=== PATIENT | female | born 1985 | race African-American/Black ===

== ENCOUNTER 2017-11-30 06:54 | Day surgery (SDC) | payer BC, OTHER ==
[2017-11-24 10:25] LABS: HEMATOCRIT 39.5 % (36.0-47.0); HEMOGLOBIN 13.2 g/dL (12.0-15.5); MEAN CORPUSCULAR HEMOGLOBIN 30.8 pg (27.0-33.4); MEAN CORPUSCULAR HGB CONC 33.3 g/dL (32.0-36.0); MEAN CORPUSCULAR VOLUME 92 fl (80-97); PLATELET COUNT 170 10^3/uL (150-450); RED BLOOD COUNT 4.28 10^6/uL (3.72-5.28); RED CELL DISTRIBUTION WIDTH 14.2 % (11.5-14.0); WHITE BLOOD COUNT 7.7 10^3/uL (4.0-10.5)
[2017-11-24 10:49] LABS: ANION GAP 10 (5-19); BLOOD UREA NITROGEN 12 mg/dL (7-20); CALCIUM 9.5 mg/dL (8.4-10.2); CARBON DIOXIDE 30 mmol/L (22-30); CHLORIDE 103 mmol/L (98-107); GLUCOSE 92 mg/dL (75-110); POTASSIUM 4.4 mmol/L (3.6-5.0); SODIUM 142.9 mmol/L (137-145)
[~2017-11-30 06:54] MED LIST: CEFAZOLIN 1 GM/D5W RTU 1 GM/50 ML RTUPB IV PRN; LACTATED RINGERS 1000 ML IV PRN; LIDOCAINE 0.5% INJ-PF (5 MG/ML) 50 ML SDV SUBCUT PRN
[2017-11-30] MEDS ORDERED: BUPIVACAINE HCL 0.25 % INJ/PF (2.5 MG/1 ML) 30 ML VIAL ONE (07:17)
[2017-11-30] MEDS ORDERED: LIDOCAINE 2% INJ-PF (20 MG/ML) 10 ML AMPUL ONE (08:34)
[2017-11-30] MEDS ORDERED: PROPOFOL INJ 200 MG/20 ML VIAL IV ONE (08:35)
[2017-11-30] MEDS ORDERED: MIDAZOLAM 2 MG/2 ML INJ ONE (08:35)
[2017-11-30] MEDS ORDERED: ONDANSETRON HCL INJ/PF 4 MG/2 ML SDV ONE (08:35)
[2017-11-30] MEDS ORDERED: DEXAMETHASONE SOD PHOSPHATE INJ 4 MG/1 ML VIAL ONE (08:35)
[2017-11-30] MEDS ORDERED: ACETAMINOPHEN 1,000 MG/100 ML RTUPB IV ONE (08:35)
[2017-11-30] MEDS ORDERED: FENTANYL CITRATE INJ/PF 100 MCG/2 ML AMPUL ONE (08:35)
[2017-11-30] MEDS ORDERED: MORPHINE SULFATE 10 MG/ML INJ IV PRN (09:14)
[2017-11-30] MEDS ORDERED: PROMETHAZINE HCL INJ 25 MG/1 ML VIAL IV PRN ×2 (09:14)
[2017-11-30] MEDS ORDERED: FENTANYL CITRATE INJ/PF 100 MCG/2 ML AMPUL IV PRN ×3 (09:14)
[2017-11-30] MEDS ORDERED: DIPHENHYDRAMINE HCL 50 MG/ML VIAL IV PRN (09:14)
[2017-11-30] MEDS ORDERED: ONDANSETRON HCL INJ/PF 4 MG/2 ML SDV IV PRN ×2 (09:14→10:03)
[2017-11-30] MEDS ORDERED: MEPERIDINE HCL/PF INJ 25 MG/1 ML DISP.SYRIN IV PRN (09:14)
[2017-11-30] MEDS ORDERED: OXYCODONE-ACETAMINOPHEN 5-325 MG TABLET PO PRN ×3 (09:14→10:03)
--- NOTE | 2017-11-30 10:03 | Discharge Summary ---
Discharge Summary (SDC) - Discharge Final Diagnosis: umbilical and ventral wall hernia Date of Surgery: 11/30/17 Discharge Date: 11/30/17 Condition: Stable Treatment or Instructions: [facility] [address] [place] [id number] Discharge Instructions: Laparoscopic Surgery 1. General Information: a. DO NOT DRIVE a car or operate dangerous machinery for 3-4 days b. DO NOT consume alcohol, tranquilizers, sleeping medications or any non- prescribed medications for 24 hours unless approved by your doctor or as long as taking narcotic prescription medications. c. DO NOT make important decisions or sign any important papers for the first 24 hours after surgery. d. When discharged home the same day of surgery have a responsible person with you for the first night. 2. Activity Restrictions: 6 weeks. a. NO heavy lifting, straining abdominal muscles, bending over a lot, yard work, house work, or sports for [address] NOT [address] for 3-4 day . c. It is fine to go for walks, up and down steps, ride in a car. d. Elevate your head when sleeping/resting. 3. Treatment: a. You may shower 48 hours after surgery, no baths or swimming for 2 weeks. Remove gauze and tape before shower but leave paper strips (steri-strips) on the skin to fall off on their own. If still on at postoperative visit they will be removed then. b. Drainage of fluid or blood is not unusual from an incision. If occurs, you can clean with peroxide and cotton ball daily and cover with dry gauze until the wound seals. c. If a lot of bleeding occurs, you can hold pressure with a gauze or cloth over the site for 10 minutes and it will usually stop. If bleeding continues you will need to call for possible evaluation in office or emergency room. 4. Medications: a. _Toradol 10 mg_ may be taken for pain as needed, one tablet every 6 hours. b. You should resume all normal medications unless a change is specified by your doctors. 5. Diet: Normal diet 6. The following may occur after laparoscopic surgery: a. Shoulder or upper back ache from retained gas that should resolve in 1-2 days b. Soreness and bruising at incision sites will resolve with time. c. Scrotal swelling (labia in women) and bruising is often seen after hernia surgery. d. Sore throat e. Fatigue may last days to weeks. f. Difficulty urinating may occur and may need to come into emergency room for urinary catheter placement. 7. Notify Physician If: a. Worsening or pain not improved with pain medication b. Persistent nausea and vomiting c. Fever above 101 d. Persistent bleeding or swelling at operative site e. Unable to urinate and uncomfortable bladder 6-8 hours after surgery 8..Follow Up Care: a. Schedule a follow up appointment with your doctor for 2 weeks. In the event of any postoperative problems or questions or you may call the office during business hours or the On-Call physician evenings and weekends at [facility]. [facility] I understand the instructions for my postoperative care as described above and a copy has been given to me. Patient/Significant Other Witness Date Prescriptions: Ketorolac Tromethamine [Toradol 10 mg Tablet] 10 mg PO Q6HP PRN #20 tablet PRN Reason: Referrals: BLADE BEVERLY PA-C [Primary Care Provider] - Discharge Diet: As Tolerated Discharge Activity: No Lifting Over 10 Pounds, No Lifting/Push/Pulling, Walk Frequently Report the Following to Your Physician Immediately: Nausea, Vomiting, Increase in Pain, Fever over 101 Degrees, Unusual Bleeding, Drainage-Foul Smelling
--- NOTE | 2017-11-30 10:14 | Operative Report ---
Operative Report DATE OF SURGERY: 11/30/17 PREOPERATIVE DIAGNOSIS: Multiple abdominal wall hernias POSTOPERATIVE DIAGNOSIS: Same OPERATION: Laparoscopic ventral wall hernia 2 repair with the primary closure and intraperitoneal mesh reinforcement SURGEON: DEMETRI MELO 1ST QUARTER TRIMMER: MOISES LEVY ANESTHESIA: GA TISSUE REMOVED OR ALTERED: None COMPLICATIONS: none ESTIMATED BLOOD LOSS: Minimal INTRAOPERATIVE FINDINGS: See below PROCEDURE: The patient was taken to the preop holding area to the main operating room where general anesthesia was induced. Abdomen was exposed, prepped and draped in sterile fashion arms abducted, instrumentation set up for laparoscopic ventral wall hernia repair. Surgical plan surgical timeout were conducted Markings were made on the skin for 3 port laparoscopic surgery left upper quadrant left lower quadrant and right mid field. Skin was anesthetized with quarter percent Marcaine. A left upper quadrant stab was made with 11 blade, Veress needle inserted the peritoneal cavity, pneumoperitoneum was established. Veress needle was removed , 5 mm port was inserted and a 5 mm viewing scope was inserted. Related fat projecting off of the parietal peritoneum left of midline at the point of fixation of the falciform ligament. Therefore using a combination of blunt, and hook delinquent tax collector cautery dissection, we opened up the retroperitoneum in this area and proceeded to evacuate prolapsed fatty through a second hernia above the umbilical hernia. This defect was approximately 2 cm diameter. The umbilical defect was approximately 2 cm in diameter. These hernias were approximately 4-1/2 cm apart in midline. We carefully inspected the abdominal wall and concluded there were no other hernias. We chose to close the hernias primarily using #1 PDS suture trans-cup orally. Markings were made on the skin for planned suture passage. Small 11 blade fei was made above the umbilicus, and using the disposable suture passer, the #1 PDS suture was threaded in a [id number] fashion for appropriate approximation of the 2 cm fascial defect. The identical sequence of maneuvers was undertaken to close the supraumbilical hernia defect. We decompressed the pneumoperitoneum, and proceeded to cinch up the sutures, and effectively secure the knots again under minimal tension. Pneumoperitoneum was reestablished and we visualized the closed the fascial defects. Photograph was taken. We now brought onto the field a 10 x 15 cm ventralight mesh by VIVA. 0 PDS sutures are placed at the 12, 3, 6, 9:00 positions, mesh rolled moistened and brought to the anterior abdominal wall at the right sided port site. The mesh was unrolled, brought up against the anterior abdominal wall using the disposable suture passer at the 12, 3, 6, and 9:00 positions. We now came around with the sure tack disposable stapling device and applied approximately 20 merced in a circumferential fashion securing the wall in a satisfactory fashion. Concluding photos were taken. There was no bleeding encountered. We reinspected our previous sites including the falciform ligament and there was no bleeding. There was no evidence of visceral injury. We felt that the operation was complete. Sponge and needle counts are correct. All ports removed under direct visualization, pneumoperitoneum evacuated, and wounds closed with 3-0 Vicryl benzoin and Steri-Strips. Patient tolerated procedure well, extubated, and taken recovery room stable condition. The physician information services assistant, Ms. Nicolas, provided assistance during this case by: Assisting and port insertion, retracting tissue, instillation of local anesthesia and closure of skin incisions.
[2017-11-30] MEDS: FENTANYL CITRATE INJ/PF 100 MCG/2 ML AMPUL ONE ×2 (10:20→10:30)
[2017-11-30] MEDS ORDERED: ONDANSETRON 4 MG TAB.RAPDIS ONE (12:32)
[2017-11-30 13:26] VITALS: BP 108/75
[2017-11-30] MEDS ORDERED: KETOROLAC TROMETHAMINE 60 MG/2 ML SDV ONE (16:42)
[2017-11-30] MEDS ORDERED: SUCCINYLCHOLINE CHLORIDE INJ 200 MG/10 ML VIAL ONE (16:42)
[2017-11-30] MEDS ORDERED: VECURONIUM BROMIDE INJ 10 MG VIAL IV ONE (16:42)
== END 2017-11-30 13:00 | disposition home or self-care (01) ==
LOC: OROUT 06:54
PROVIDERS: ATTEND Surgery
DX: K43.9 Ventral hernia without obstruction or gangrene (principal); K42.9 Umbilical hernia without obstruction or gangrene; I10 Essential (primary) hypertension; E78.00 Pure hypercholesterolemia, unspecified; E55.9 Vitamin D deficiency, unspecified; E66.3 Overweight; Z86.14 Personal history of Methicillin resistant Staphylococcus aureus infection; Z79.899 Other long term (current) drug therapy; Z68.29 Body mass index [BMI] 29.0-29.9, adult
CPT/HCPCS: 36415 ×2; 84132; 85027; 81025; 80048; 49652; C1713; C1781; J2250; J0690; J1100; J1885; S0119; J3010; J3490 ×2; J0330; J2405; J2704; J0131; 752

== ENCOUNTER 2018-03-13 04:28 | Emergency (ER) | payer OTHER ==
[2018-03-13 04:38] VITALS: BP 133/91
[2018-03-13] MEDS ORDERED: ERYTHROMYCIN 0.5% OPH OINT 1 GM UNIT DOSE OS ONE (05:10)
--- NOTE | 2018-03-13 05:17 | ER Document Report ---
ED Eye Complaint - General Chief Complaint: Eye Problem Stated Complaint: SWOLLEN LEFT EYE Time Seen by Provider: 03/13/18 04:46 Notes: Patient is a 32-year-old female that comes to the emergency department for chief complaint of left eye pain, she states her left eyelid started swelling slightly 2 days ago and has progressively worsened. She denies itching, discharge from the eye, loss of vision. She does wear contacts but she took them out and is wearing glasses. She denies injury, foreign body sensation, trauma. TRAVEL OUTSIDE OF THE [place] IN LAST 30 DAYS: No COUNTRY TRAVELED TO/FROM: [employer] - Related Data Allergies/Adverse Reactions: No Known Allergies Allergy (Verified 11/30/17 07:30) Past Medical History - General Information source: Patient - Social History Smoking Status: Never Smoker Frequency of alcohol use: Occasional Drug Abuse: None Lives with: Family Family History: None - states none Patient has suicidal ideation: No Patient has homicidal ideation: No - Past Medical History Cardiac Medical History: Reports: Hx Hypertension Denies: Hx Coronary Artery Disease, Hx Heart Attack, Hx Pulmonary Embolism, Hx Heart Murmur Pulmonary Medical History: Denies: Hx Asthma, Hx Bronchitis, Hx COPD, Hx Pneumonia, Hx Sleep Apnea, Hx Tuberculosis Neurological Medical History: Denies: Hx Cerebrovascular Accident, Hx Seizures Endocrine Medical History: Denies: Hx Hyperthyroidism, Hx Hypothyroidism Renal/ Medical History: Denies: Hx Kidney Stones, Hx Ovarian Cysts, Hx Peritoneal Dialysis, Hx Pelvic Inflammatory Disease Malignancy Medical History: Denies: Hx Breast Cancer, Hx Cervical Cancer, Hx Ovarian Cancer GI Medical History: Denies: Hx Gastroesophageal Reflux Disease, Hx Hiatal Hernia , Hx Ulcer Musculoskeletal Medical History: Denies Hx Arthritis, Denies Hx Fibromyalgia Psychiatric Medical History: Denies: Hx Bipolar Disorder, Hx Depression, Hx Post Traumatic Stress Disorder , Hx Schizophrenia Traumatic Medical History: Denies: Hx Fractures Infectious Medical History: Denies: Hx HIV Surgical Hx: Negative - Immunizations Hx Diphtheria, Pertussis, Tetanus Vaccination: Yes Review of Systems - Review of Systems Constitutional: No symptoms reported EENT: See HPI Cardiovascular: No symptoms reported Respiratory: No symptoms reported Gastrointestinal: No symptoms reported Genitourinary: No symptoms reported Female Genitourinary: No symptoms reported Musculoskeletal: No symptoms reported Skin: No symptoms reported Hematologic/Lymphatic: No symptoms reported Neurological/Psychological: No symptoms reported Physical Exam - Vital signs Vitals: Temp Pulse Resp BP Pulse Ox 97.8 F 74 16 133/91 H 99 03/13/18 04:32 03/13/18 04:32 03/13/18 04:32 03/13/18 04:32 03/13/18 04:32 - Notes Notes: GENERAL: Alert, interacts well. No acute distress. HEAD: Normocephalic, atraumatic. EYES: Pupils equal, round, and reactive to light. Extraocular movements intact. Sclera clear and not injected. No discharge. No superficial foreign body. Upper eyelid with edema and mild tenderness, no severe tenderness, no severe erythema, no induration or fluctuance. Lower eyelid unremarkable. Unremarkable examination otherwise. ENT: Oral mucosa moist, tongue midline. Oropharynx unremarkable. Airway patent. Nares patent, no nasal septal hematoma, TM's intact. NECK: Full range of motion. Supple. Trachea midline. LUNGS: Clear to auscultation bilaterally, no wheezes, rales, or rhonchi. No respiratory distress. HEART: Regular rate and rhythm. No murmur ABDOMEN: Soft, non-tender. Non-distended. Bowel sounds present in all 4 quadrants. GENITOURINARY: Deferred EXTREMITIES: Moves all 4 extremities spontaneously. No edema, normal radial and dorsalis pedis pulses bilaterally. No cyanosis. BACK: no cervical, thoracic, lumbar midline tenderness. No saddle anesthesia, normal distal neurovascular exam. NEUROLOGICAL: Alert and oriented x3. Normal speech. [cranial nerves II through XII grossly intact]. PSYCH: Normal affect, normal mood. SKIN: Warm, dry, normal turgor. No rashes or lesions noted. Course - Re-evaluation Re-evalutation: Physical examination is consistent with blepharitis. There is no induration or fluctuance, no evidence of abscess, normal EOMs, normal pupil, normal conjunctiva, no discharge. No visual disturbance. Patient will be given erythromycin ointment to go home with to begin with, placed on azithromycin drops for treatment, she will follow closely with ophthalmology, I discussed this with Dr. Jimenez. I discussed follow-up and return precautions in detail with patient. Patient states understanding and agreement with plan. - Vital Signs Vital signs: Temp Pulse Resp BP Pulse Ox 97.8 F 74 16 133/91 H 99 03/13/18 04:32 03/13/18 04:32 03/13/18 04:32 03/13/18 04:32 03/13/18 04:32 Discharge - Discharge Clinical Impression: Pain of left eyelid Blepharitis Qualifiers: Blepharitis type: unspecified type Laterality: left Eyelid: upper Qualified Code(s): H01.004 - Unspecified blepharitis left upper eyelid Condition: Good Disposition: HOME, SELF-CARE Additional Instructions: Your evaluation is consistent with blepharitis, inflammation/infection of the gland in the eyelid. Take the prescribed antibiotic drops, apply warm compresses several times daily , and follow-up closely with the ophthalmology referral (call tomorrow). Return if you worsen including increased swelling, developing redness, severe pain, fever of 100.4 or greater, loss of vision, or any other concerning or worsening symptoms. Prescriptions: Azithromycin [Azasite] 2.5 ml OP ASDIR #1 bottle Referrals: VIRIDIANA SAN MD [ACTIVE STAFF] - 03/13/18
[2018-03-13] MEDS ORDERED: HYDROCODONE/ACETAMINOPHEN 5-325 MG (6 TAB/ER DISP) PO PRN (05:19)
== END 2018-03-13 05:28 | disposition home or self-care (01) ==
LOC: ER 04:28
DX: H01.004 Unspecified blepharitis left upper eyelid (principal); I10 Essential (primary) hypertension
CPT/HCPCS: 99283